=== PATIENT | female | born 1990 | race Caucasian/White ===

== ENCOUNTER 2016-07-24 04:17 | Emergency (ER) | payer SELFPAY ==
[2016-07-24] MEDS ORDERED: LIDOCAINE 1%/EPINEPHRINE INJ 20 ML VIAL INJ ONE (04:50)
--- NOTE | 2016-07-24 05:30 | ER Document Report ---
ED General <MARGARET CHRISTIANSON - Last Filed: 07/24/16 06:38> <CASE CARLTON - Last Filed: 07/24/16 11:52> - General Chief Complaint: Laceration Stated Complaint: ARM INJURY Notes: Patient is a 25 year old female presents for complaint of a self inflicted laceration to left forearm. Patient says that she got already met family member. She had been drinking tonight. She says she became very upset and then start cutting her left forearm. When asked if she is suicidal, she currently says that she is depressed but not completely suicidal. She says she is unsure if she was actually tried to hurt herself or just relieve stress. She says she is very emotional the time and had been drinking. She admits to a previous history of depression and said that she did self cut once before when she's 14. She currently takes no medications except for occasional Suboxone which she was previously prescribed in the past. She does not take this on a daily basis. She denies any other drug abuse. (MARGARET CHRISTIANSON) - Related Data Allergies/Adverse Reactions: No Known Allergies Allergy (Verified 03/11/13 11:39) Past Medical History - Social History Smoking Status: Unknown if Ever Smoked Frequency of alcohol use: Occasional Drug Abuse: None Family History: None - Immunizations Immunizations up to date: Yes Hx Diphtheria, Pertussis, Tetanus Vaccination: Yes <MARGARET CHRISTIANSON - Last Filed: 07/24/16 06:38> Review of Systems <MARGARET CHRISTIANSON - Last Filed: 07/24/16 06:38> <CASE CARLTON - Last Filed: 07/24/16 11:52> - Review of Systems Notes: My Normal Review Basic REVIEW OF SYSTEMS: CONSTITUTIONAL : Denies fever, chills, or sweats. Denies recent illness. EENT: Denies eye, ear, throat, or mouth pain or symptoms. Denies nasal or sinus congestion. RESPIRATORY: Denies cough, cold, or chest congestion. Denies shortness of breath, difficulty breathing, or wheezing. GASTROINTESTINAL: Denies abdominal pain. Denies nausea, vomiting, or diarrhea. Denies constipation. Last BM: GENITOURINARY: Denies difficulty urinating, painful urination, burning, frequency, or blood in urine. MUSCULOSKELETAL: Denies neck or back pain or joint pain or swelling. SKIN: Laceration left forearm NEUROLOGICAL: Denies altered mental status or loss of consciousness. Denies headache. Denies weakness or paralysis or loss of use of either side. Denies problems with gait or speech. Denies sensory or motor loss. PSYCHIATRIC: Depression ALL OTHER SYSTEMS REVIEWED AND NEGATIVE. (MARGARET CHRISTIANSON) Physical Exam <MARGARET CHRISTIANSON - Last Filed: 07/24/16 06:38> <CASE CARLTON - Last Filed: 07/24/16 11:52> - Vital signs Vitals: Temp Pulse Resp BP Pulse Ox 98 F 111 H 18 117/65 95 07/24/16 04:36 07/24/16 04:36 07/24/16 04:36 07/24/16 04:36 07/24/16 04:36 (MARGARET CHRISTIANSON) (CASE CARLTON) - Notes Notes: General Appearance: Well nourished, alert, cooperative, no acute distress, no obvious discomfort. Well-appearing. Vitals: reviewed, See vital signs table. Head: no swelling or tenderness to the head Eyes: PERRL, EOMI, Conjuctiva clear Mouth: No decreasd moisture Throat: No tonsillar inflammation, No airway obstruction, No lymphadenopathy Neck: Supple, no neck tenderness, No thyromegaly Lungs: No wheezing, No rales, No rhonci, No accessory muscle use, good air exchange bilaterally. Heart: Normal rate, Regular rythm, No murmur, no rub Abdomen: Normal BS, soft, No rigidity, No abdominal tenderness, No guarding, no rebound, no abdominal masses, no organomegaly Extremities: strength 5/5 in all extremities, good pulses in all extremities, no swelling or tenderness in the extremities, no edema. Skin: 4 cm laceration to left forearm. Neuro: Speech is clear , responds appropriately to questions. (MARGARET CHRISTIANSON) Course - Laboratory Result Diagrams: 07/24/16 05:45 07/24/16 05:45 <MARGARET CHRISTIANSON - Last Filed: 07/24/16 06:38> - Laboratory Result Diagrams: 07/24/16 05:45 07/24/16 05:45 <CASE CARLTON - Last Filed: 07/24/16 11:52> - Vital Signs Vital signs: Temp Pulse Resp BP Pulse Ox 98.8 F 92 14 100/41 L 95 07/24/16 07:57 07/24/16 07:57 07/24/16 07:57 07/24/16 07:57 07/24/16 07:57 (MARGARET CHRISTIANSON) (CASE CARLTON) - Laboratory Laboratory results interpreted by me: 07/24/16 07/24/16 07/24/16 05:45 05:45 08:58 Hct 35.5 L RDW 15.2 H Urine Blood SMALL H Salicylates < 1.0 L Acetaminophen < 10 L (CASE CARLTON) - EKG Interpretation by Me Additional EKG results interpreted by me: 07/24/16 06:38 EKG is reviewed and interpreted by me. EKG shows sinus tachycardia with rate [address] segment elevation or depression. No ischemic T wave inversions. AL interval, QRS duration, QTC intervals are within normal range. No old EKG available for comparison at this time. 07/24/16 06:39 (MARGARET CHRISTIANSON) Procedures - Laceration/Wound Repair left forearm Wound length (cm): 4 Wound's Depth, Shape: Linear Laceration pre-procedure: Shur-Clens applied Anesthetic type: 1% Lidocaine w/epi Volume Anesthetic (mLs): 2 Wound explored: Clean Irrigated w/ Saline (mLs): 20 Wound Repaired With: Sutures Suture Size/Type: 4:0, Ethilon Number of Sutures: 8 Post-procedure NV exam normal: Yes Complications: No <MARGARET CHRISTIANSON - Last Filed: 07/24/16 06:38> Discharge <MARGARET CHRISTIANSON - Last Filed: 07/24/16 06:38> <CASE CARLTON - Last Filed: 07/24/16 11:52> - Discharge Clinical Impression: PTSD (post-traumatic stress disorder) Anxiety disorder Qualifiers: Anxiety disorder type: unspecified anxiety disorder Qualified Code(s): F41.9 - Anxiety disorder, unspecified Condition: Stable Disposition: HOME, SELF-CARE Instructions: Laceration Care ([facility]), Anxiety ([facility]) Additional Instructions: KEEP WOUND CLEAN AND DRY. FOLLOW UP FOR SUTURE REMOVAL IN 10 DAYS. FOLLOW UP WITH [facility] ON FEB. 9th SCHEDULED. RETURN TO E.R. IF PROBLEMS. Referrals: [facility] [Outside] - 07/31/16 10:00 am
[2016-07-24 05:56] LABS: ABSOLUTE EOSINOPHILS # (AUTO) 0.1 10^3/uL (0.0-0.6); ABSOLUTE MONOCYTES (AUTO) 0.5 10^3/uL (0.1-1.4); ABSOLUTE NEUT (AUTO) 3.2 10^3/uL (1.7-8.2); BASOPHILS % (AUTO) 0.6 % (0-2); EOSINOPHILS % (AUTO) 1.8 % (0-6); HEMATOCRIT 35.5 % (36.0-47.0); HEMOGLOBIN 12.3 g/dL (12.0-15.5); HGB HCT DIFFERENCE 1.4; LYMPHOCYTES % (AUTO) 43.9 % (13-45); MEAN CORPUSCULAR HEMOGLOBIN 31.3 pg (27.0-33.4); MEAN CORPUSCULAR HGB CONC 34.6 g/dL (32.0-36.0); MEAN CORPUSCULAR VOLUME 90 fl (80-97); MONOCYTES % (AUTO) 6.8 % (3-13); RED BLOOD COUNT 3.93 10^6/uL (3.72-5.28); RED CELL DISTRIBUTION WIDTH 15.2 % (11.5-14.0); SEGMENTED NEUTROPHILS % (AUTO) 46.9 % (42-78); WHITE BLOOD COUNT 6.9 10^3/uL (4.0-10.5)
[2016-07-24] MEDS ORDERED: NICOTINE 14 MG/24 HR PATCH.TD24 TD ONE (06:08)
[2016-07-24 06:17] LABS: ALANINE AMINOTRANSFERASE 24 U/L (9-52); ALBUMIN 4.6 g/dL (3.5-5.0); ALCOHOL 90 mg/dL (NONE DETECTED); ALKALINE PHOSPHATASE 70 U/L (38-126); ANION GAP 14 (5-19); ASPARTATE AMINO TRANSFERASE 22 U/L (14-36); BILIRUBIN,TOTAL 0.3 mg/dL (0.2-1.3); BLOOD UREA NITROGEN 11 mg/dL (7-20); CALCIUM 9.4 mg/dL (8.4-10.2); CARBON DIOXIDE 24 mmol/L (22-30); CHLORIDE 106 mmol/L (98-107); CREATININE RESULT 0.64 mg/dL (0.52-1.25); GLUCOSE 90 mg/dL (75-110); POTASSIUM 3.8 mmol/L (3.6-5.0); SODIUM 143.6 mmol/L (137-145); TOTAL PROTEIN 7.3 g/dL (6.3-8.2)
[2016-07-24 09:16] LABS: APPEARANCE,URINE SLIGHTLY-CLOUDY; BILIRUBIN,URINE NEGATIVE (NEGATIVE); GLUCOSE, URINE NEGATIVE (NEGATIVE); KETONES,URINE NEGATIVE (NEGATIVE); LEUKOCYTE ESTERASE,URINE NEGATIVE (NEGATIVE); NITRITE,URINE NEGATIVE (NEGATIVE); PROTEIN,URINE NEGATIVE (NEGATIVE); URINE SPECIFIC GRAVITY 1.013; UROBILINOGEN,URINE NEGATIVE mg/dL (<2.0)
--- NOTE | 2016-07-24 09:21 | ER Document Report ---
Doctor's Note Notes: 07/24/16 09:20 Medical rounds: Chart reviewed and patient interviewed briefly. Patient denies any somatic complaints. She is alert, oriented, and coherent. Vital signs are normal. Laboratory values satisfactory. She is medically stable pending psychosocial evaluation and disposition.
[2016-07-24 09:30] LABS: URINE BARBITURATES SCREEN NEGATIVE; URINE METHADONE SCREEN NEGATIVE; URINE OPIATES LOW UNCONFIRMED POSITIVE; URINE PHENCYCLIDINE SCREEN NEGATIVE
--- NOTE | 2016-07-24 09:32 | PSYCHOLOGICAL NOTE ---
Psych Note - Psych Note Psych Note: Patient presented to [facility] ED with complaint of a self inflicted laceration to left forearm. Patient says that she got already met family member. She had been drinking tonight. She says she became very upset and then start cutting her left forearm. Patient states she is not suicidal and was not trying to kill herself. She continues to state that it has been almost 10 years since the last time she has cut herself. Clinician notes patient's self-inflicted wound is on left forearm which is approximately 4 cm long; stitches are noted. Scarring in the general location is also noted in what appears to be similar old wounds reinforcing patient's statement. Patient disclosed that she had been drinking more than normal last night. She states that it started out as fun between her and her brother however it quickly changed. She continued disclosed that even last night when she was sitting in the emergency room she looked down she stated I don't know what I was thinking; "what the f was I thinking?" Patient disclosed her mother started drinking before she her brother and when she drinks she says mean things. She continue disclosed that he was approximately 1-1/2 hours of her mother berating her and telling she does love her and calling her nasty names that she just lost. She continue disclosed that normally their mother is not in the home so as not a big deal however last night it was. Patient states that previous events led her to outpatient services and agrees that a return to outpatient services would benefit and reinforced learned coping skills. Patient's Brother, Juanito [phone], agrees to be patient's safety resource. He agrees to ensure patient and patient's mother have minimal contact while intoxicated. He continued to disclose that he will actively assist the patient in using coping skills and to remind patient to walk away. Patient is alert and orientated to person place time and circumstance. Patient' s mood is euthymic with congruent affect. Patient denies suicidal homicidal ideation. Patient denies auditory and visual hallucinations; no delusions are noted. Thought process is logical organized and linear. Conversational speech is within normal rate tone and prosody. Eye contact was good. Intellectual abilities appear to be average range. Attention and concentration are good. Insight, judgment, impulse control are fair. 300.00 (F41.9) Unspecified Anxiety Disorder per history provided by patient 309.81 (F43.10) PTSD per history provided by patient Impression/plan: At this time the patient is denying suicidal ideation and intent and does not met criteria for IVC per [place] GS 122. Patient will be receiving outpatient services through [facility] 07/31/16 @ 10am. Patient's brother agrees to be patient's safety resource. Patient agrees that living at home is not a good idea and that her brother,Juanito, will assist her in ensuring that she has minimal contact with her mother during the process of finding a new home. She continued disclosed that she agrees that she will not drink since last night if she was not drinking she could've just left inside of listening to her mother which resulted in this event.
--- NOTE | 2016-07-24 11:34 | EKG REPORT ---
SEVERITY:- OTHERWISE NORMAL ECG - SINUS TACHYCARDIA : Confirmed by: Timothy Davison 24-Jul-2016 11:33:24
[2016-07-24 12:10] VITALS: BP 116/73
== END 2016-07-24 12:10 | disposition home or self-care (01) ==
LOC: ER 04:17
PROC: 0HQEXZZ Repair Left Lower Arm Skin, External Approach (ICD-10-PCS; principal; 2016-07-24)
DX: S51.812A Laceration without foreign body of left forearm, initial encounter (principal); X78.8XXA Intentional self-harm by other sharp object, initial encounter; Y93.89 Activity, other specified; F43.10 Post-traumatic stress disorder, unspecified; F41.9 Anxiety disorder, unspecified; F32.9 Major depressive disorder, single episode, unspecified; R00.0 Tachycardia, unspecified
CPT/HCPCS: 12002; 93005; 99285; 36415; 80307 ×4; 84703; 85025; 80053; 81001; 93010; J3490

== ENCOUNTER 2017-05-14 12:42 | Emergency (ER) | payer SELFPAY ==
[2017-05-14 13:10] LABS: ABSOLUTE BASOPHILS # (AUTO) 0.1 10^3/uL (0.0-0.2); ABSOLUTE EOSINOPHILS # (AUTO) 0.1 10^3/uL (0.0-0.6); ABSOLUTE LYMPHOCYTES (AUTO) 2.9 10^3/uL (0.5-4.7); ABSOLUTE MONOCYTES (AUTO) 1.2 10^3/uL (0.1-1.4); ABSOLUTE NEUT (AUTO) 7.9 10^3/uL (1.7-8.2); BASOPHILS % (AUTO) 0.9 % (0-2); EOSINOPHILS % (AUTO) 1.2 % (0-6); LYMPHOCYTES % (AUTO) 23.5 % (13-45); MEAN CORPUSCULAR HEMOGLOBIN 31.2 pg (27.0-33.4); MEAN CORPUSCULAR HGB CONC 33.4 g/dL (32.0-36.0); MEAN CORPUSCULAR VOLUME 93 fl (80-97); MONOCYTES % (AUTO) 9.8 % (3-13); RED BLOOD COUNT 4.18 10^6/uL (3.72-5.28); RED CELL DISTRIBUTION WIDTH 13.5 % (11.5-14.0); SEGMENTED NEUTROPHILS % (AUTO) 64.6 % (42-78); WHITE BLOOD COUNT 12.3 10^3/uL (4.0-10.5)
[2017-05-14] MEDS ORDERED: HALOPERIDOL LACTATE INJ 5 MG/1 ML VIAL IM ONE ×2 (13:10→15:03)
--- NOTE | 2017-05-14 13:10 | ER Document Report ---
ED Psych Disorder / Suicide - General Mode of Arrival: Medic Information source: Emergency Med Personnel - IVC paperwork Cannot obtain history due to: Uncooperative <MARLENE BENÍTEZ - Last Filed: 05/14/17 13:56> <SHAE ST - Last Filed: 05/14/17 16:21> - General Chief Complaint: Psych Problem Stated Complaint: IVC Time Seen by Provider: 05/14/17 12:47 Notes: Patient is a 26-year-old female that presents to the emergency department today on IVC paperwork. According to IVC paperwork, the patient has been "decreasing in levels of functioning, has been slamming doors in peoples faces, and has not been sleeping or eating". Patient is uncooperative and refuses to talk so history is limited. (MARLENE BENÍTEZ) - Related Data Allergies/Adverse Reactions: No Known Allergies Allergy (Verified 03/11/13 11:39) Past Medical History - General Information source: [facility] Records Cannot obtain history due to: Uncooperative - Social History Smoking Status: Current Every Day Smoker Cigarette use (# per day): Yes Family History: None Surgical Hx: Negative - Immunizations Immunizations up to date: Yes Hx Diphtheria, Pertussis, Tetanus Vaccination: Yes <MARLENE BENÍTEZ - Last Filed: 05/14/17 13:56> Review of Systems - Review of Systems -: Yes ROS unobtainable due to patient's medical condition - refuses to talk <MARLENE BENÍTEZ - Last Filed: 05/14/17 13:56> Physical Exam <MARLENE BENÍTEZ - Last Filed: 05/14/17 13:56> <SHAE ST - Last Filed: 05/14/17 16:21> - Vital signs Vitals: Temp Pulse Resp BP Pulse Ox 98.8 F 124 H 20 140/74 H 95 05/14/17 12:48 05/14/17 12:48 05/14/17 12:48 05/14/17 12:48 05/14/17 12:48 - Notes Notes: Physical Exam: General: Refuses to answer questions. In 4 point restraints, still jerking attempting to get out of them. HEENT: Normocephalic. Atraumatic. PERRLA. Extraocular movements intact. Oropharynx clear. Neck: Supple. Respiratory: No respiratory distress. Abdominal: Normal Inspection. No distension. Extremities: Moves all four extremities. Neurological: unable to assess Psychological: unable to assess Skin: Warm. Dry. Normal color. (MARLENE BENÍTEZ) Course - Laboratory Result Diagrams: 05/14/17 13:00 05/14/17 13:00 <MARLENE BENÍTEZ - Last Filed: 05/14/17 13:56> - Laboratory Result Diagrams: 05/14/17 13:00 05/14/17 13:00 - Transfer of Care Care transferred to following provider: Dr. Downs <HSAE ST - Last Filed: 05/14/17 16:21> - Re-evaluation Re-evalutation: 05/14/17 15:04 The patient does seem to be a little bit drowsy, but remains quite active and uncooperative and fighting against restraints. 05/14/17 15:30 After consultation with psychiatry, the patient will be given a 10 mg dose of Zyprexa IM at this time, and then be started on Zyprexa 5 mg twice daily along with daily Cogentin. (SHAE ST) - Vital Signs Vital signs: Temp Pulse Resp BP Pulse Ox 98.8 F 124 H 20 140/74 H 95 05/14/17 12:48 05/14/17 12:48 05/14/17 12:48 05/14/17 12:48 05/14/17 12:48 - Laboratory Laboratory results interpreted by me: 05/14/17 05/14/17 05/14/17 13:00 13:00 13:00 WBC 12.3 H Sodium 146.5 H Chloride 109 H Carbon Dioxide 14 L Anion Gap 24 H Direct Bilirubin 0.5 H Creatine Kinase 296 H Albumin 5.2 H Salicylates < 1.0 L Acetaminophen < 10 L - Transfer of Care Notes: 05/14/17 16:20 Patient care transferred to Dr. Downs. Patient is pending EKG to be done. Patient recently received an injection of Zyprexa. Patient remains in restraints at this time. When the Zyprexa begins to work she can be reevaluated for the restraint needs. She remains on involuntary commitment hold. (SHAE ST) Discharge <MARLENE BENÍTEZ - Last Filed: 05/14/17 13:56> <SHAE ST - Last Filed: 05/14/17 16:21> - Discharge Clinical Impression: Manic psychosis Condition: Stable Disposition: PSYCH HOSP/UNIT Scribe Attestation: 05/14/17 13:42 I personally performed the services described in the documentation, reviewed and edited the documentation which was dictated to the scribe in my presence, and it accurately records my words and actions. (SHAE ST) Scribe Documentation - Scribe Written by Bernardinoe:: Sampson Otto, 05/14/2017 1400 acting as scribe for :: Dieudonne <MARLENE BENÍTEZ - Last Filed: 05/14/17 13:56>
[2017-05-14] MEDS ORDERED: BENZTROPINE MESYLATE INJ 2 MG/2 ML AMPULE IM ONE (13:11)
[2017-05-14 13:30] LABS: ALANINE AMINOTRANSFERASE 27 U/L (9-52); ALBUMIN 5.2 g/dL (3.5-5.0); ALKALINE PHOSPHATASE 73 U/L (38-126); ASPARTATE AMINO TRANSFERASE 30 U/L (14-36); BILIRUBIN,DIRECT 0.5 mg/dL (0.0-0.4); BILIRUBIN,TOTAL 0.9 mg/dL (0.2-1.3); BLOOD UREA NITROGEN 13 mg/dL (7-20); CALCIUM 9.9 mg/dL (8.4-10.2); CREATININE RESULT 0.89 mg/dL (0.52-1.25); GLUCOSE 95 mg/dL (75-110); TOTAL PROTEIN 7.8 g/dL (6.3-8.2)
[2017-05-14 13:31] LABS: ALCOHOL < 10 mg/dL (NONE DETECTED)
[2017-05-14 13:39] LABS: CARBON DIOXIDE 14 mmol/L (22-30); CHLORIDE 109 mmol/L (98-107); POTASSIUM 4.2 mmol/L (3.6-5.0); SODIUM 146.5 mmol/L (137-145)
[2017-05-14 13:40] LABS: ANION GAP 24 (5-19)
[2017-05-14 13:57] LABS: ADD ON TESTING BLD IN LAB ACKNOWLEDGE
[2017-05-14 14:06] LABS: CREATINE KINASE 296 U/L (30-135)
[2017-05-14] MEDS ORDERED: RISPERIDONE 0.25 MG TABLET PO SCH (15:25)
[2017-05-14] MEDS ORDERED: OLANZAPINE INJ/PF 10 MG SDV IM ONE (15:27)
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
[2017-05-14] MEDS ORDERED: OLANZAPINE 5 MG TABLET PO SCH (22:00)
[2017-05-15] MEDS ORDERED: BENZTROPINE MESYLATE 1 MG TABLET PO SCH (10:00)
--- NOTE | 2017-05-15 10:06 | ER Document Report ---
Doctor's Note Notes: 05/15/17 10:05 This is a 26-year-old female. Brought in under commitment last night. Refuses to cooperate with urinalysis, EKG or other medical interventions. Will not talk to anyone. Would not talk to me this morning. Patient needs intensive therapy. Advised patient that if we are unable to get her urine we may need to do a urine catheterization to evaluate for toxins which could be causing issues. Patient did not respond. Patient is sitting upright and looking at the floor. Vital signs have been reviewed. We will continue to try and negotiate with patient with regards to laboratory studies but will need to get intervention for urinalysis if she does not cooperate.
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
[2017-05-15 10:33] LABS: APPEARANCE,URINE SLIGHTLY-CLOUDY; BILIRUBIN,URINE NEGATIVE (NEGATIVE); GLUCOSE, URINE NEGATIVE (NEGATIVE); KETONES,URINE 20 mg/dL (NEGATIVE); LEUKOCYTE ESTERASE,URINE TRACE (NEGATIVE); NITRITE,URINE NEGATIVE (NEGATIVE); PROTEIN,URINE 100 mg/dL (NEGATIVE); URINE SPECIFIC GRAVITY 1.033
[2017-05-15 10:43] LABS: URINE BARBITURATES SCREEN NEGATIVE; URINE METHADONE SCREEN NEGATIVE; URINE OPIATES LOW NEGATIVE; URINE PHENCYCLIDINE SCREEN NEGATIVE
--- NOTE | 2017-05-15 14:44 | EKG REPORT ---
SEVERITY:- DEFECTIVE ECG - SINUS RHYTHM BASELINE ARTIFACT.REPEAT EKG. : Confirmed by: Syeda Coats MD 15-May-2017 14:43:41
[2017-05-15] MEDS ORDERED: OLANZAPINE 5 MG TABLET PO SCH (22:00)
--- NOTE | 2017-05-16 10:13 | ER Document Report ---
Doctor's Note Notes: 05/16/17 10:10 Rounds: Chart reviewed and attempted to interview patient, but she is not responding. She is awake and has her eyes open but will not answer any questions. This is the same behavior that she has exhibited since her arrival here 2 days ago. She has a history of bipolar disorder and PTSD. Lab studies are all essentially normal except for a white count of 12,300. Vital signs are all normal. Patient has refused to take medications, and unfortunately, nurse taking care of her last night thought she could refuse her medications so the patient has now been here into her second day without receiving medications except for her initial single dose of Haldol when she arrived. Patient appears to be medically stable for transfer or discharge. Cielo Luis MD
[2017-05-16] MEDS: BENZTROPINE MESYLATE INJ 2 MG/2 ML AMPULE IM SCH (10:20)
[2017-05-16] MEDS: OLANZAPINE INJ/PF 10 MG SDV IM SCH ×2 (10:20→21:55)
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
[2017-05-17] MEDS: BENZTROPINE MESYLATE INJ 2 MG/2 ML AMPULE IM SCH (08:18)
[2017-05-17] MEDS: OLANZAPINE INJ/PF 10 MG SDV IM SCH ×2 (09:42→21:09)
[2017-05-17] MEDS ORDERED: NORMAL SALINE 1000 ML 1,000 ML IV PRN (10:58)
--- NOTE | 2017-05-17 10:58 | ER Document Report ---
Doctor's Note Notes: 05/17/17 10:57 Patient still not verbal. Initial laboratory studies that show some slight dehydration notified by nursing staff the patient is not drinking therefore we will recheck chemistry panel will establish an IV and give the patient fluids for hydration still currently pending psychiatric evaluation
--- NOTE | 2017-05-17 14:05 | PSYCHOLOGICAL NOTE ---
Psych Note - Psych Note Psych Note: Patient is a 26 year old female who has been in the ED under IVC since 2016 for manic episode. She has not been engaged with evaluations since arriving to the ED. She has not been eating or drinking much. Today this has not changed. Patient was sleeping but easily aroused. She shook her head no when this clinician asked her to talk and have a discussion. She did open her eyes slightly and blink. She pulled her covers up a bit more. At 1222 this clinician noticed mother at bedside. Patient was knelt down on her knees in the corner of the room below the TV. She was facing mother and crying. Diagnosis: 296.80 (F31.9) Unspecified Bipolar Related Disorder 309.81 (F43.10) Post Traumatic Stress Disorder by History Impression/Plan: Recommendation to maintain IVC given patient lack of engagement , depressed mood with tearful affect, and her history with noncompliance with treatment. Will continue to try to engage patient. Consulted with Dr. Watson regarding the management and care of patient. ED Physician in agreement with recommendations.
[2017-05-18] MEDS: BENZTROPINE MESYLATE INJ 2 MG/2 ML AMPULE IM SCH (09:00)
--- NOTE | 2017-05-18 10:04 | ER Document Report ---
Doctor's Note Notes: 05/18/17 10:02 Medical rounds: Chart reviewed and patient interviewed briefly. Vital signs are satisfactory. Laboratory values are satisfactory. Patient is in no apparent distress. She opens her eyes when spoken to, but will not verbalize. She continues to be medically stable, pending reevaluation and placement by psychosocial team.
[2017-05-18] MEDS: OLANZAPINE INJ/PF 10 MG SDV IM SCH ×2 (11:30→22:05)
--- NOTE | 2017-05-18 13:01 | PSYCHOLOGICAL NOTE ---
Psych Note - Psych Note Psych Note: Patient is a 26 year old female who has been in the ED under IVC since 2016 for manic episode. She continues to not been engaged with evaluations since arriving to the ED. Overnight nurse identified patient ate last evening while mother was visiting and even came to meter maintenance person the doorway (previously stayed room trying to avoid interaction). The morning patient health safety coordinator stated she asked patient if she wanted to eat but patient refused and she asked if patient wanted a shower and patient started crying. This clinician observed patient sleeping or resting in bed all morning into the afternoon. Patient health safety coordinator confirmed this and mentioned she has repositioned herself a couple times. At 1226 attempted to engage patient. She was sitting upright in the chair in her room with a blanket wrapped around her. She did speak a little bit. She asked what this clinician wanted to talk with her about. She asked what would have to take place for a plan of care for discharge after this clinician stated if patient talks about why she is in the ED and how she is feeling she may not need to stay or go to a behavioral health facility. She stated "I don't' know what to do but did not elaborate." At one point she smiled and laughed at a car commercial that had a Marty theme. She commented "some commercials are silly." After this clinician walked out patient went to the corner of the room out of sight and ate a small piece of food and drank some juice. Attending nurse identified patient would not eat breakfast or lunch and patient had asked her why her medication dose keeps changing. Attending nurse also stated patient has been randomly tearful. She noted patient's father, Terrence ([phone]), called and when nurse asked patient if she wanted to speak with him she became tearful but eventually said she wanted him here. He had to work at 1300 so will attempt to call him tomorrow for further collateral. Diagnosis: 296.80 (F31.9) Unspecified Bipolar Related Disorder 309.81 (F43.10) Post Traumatic Stress Disorder by History Impression/Plan: Recommendation to maintain IVC given patient lack of engagement , depressed mood with tearful affect, and her history with noncompliance with treatment. Will continue to try to engage patient. Consulted with Dr. Watson regarding the management and care of patient. ED Physician in agreement with recommendations.
[2017-05-18] MEDS ORDERED: FLUOXETINE HCL 20 MG CAPSULE PO SCH (13:30)
[2017-05-18] MEDS ORDERED: FLUOXETINE HCL 20 MG CAPSULE PO ONE (15:30)
--- NOTE | 2017-05-19 07:47 | ER Document Report ---
Doctor's Note Notes: 05/19/17 07:45 Pt accepted to [facility] under the care of Dr. Le for Inpatient Psychiatric care. She will be transported by Law Enforcement. Pt reassessed and stable for transfer.
[2017-05-19] MEDS: BENZTROPINE MESYLATE INJ 2 MG/2 ML AMPULE IM SCH (08:10)
[2017-05-19 08:54] VITALS: BP 110/71
== END 2017-05-19 08:40 ==
LOC: ER 12:42
DX: F30.2 Manic episode, severe with psychotic symptoms (principal); F17.210 Nicotine dependence, cigarettes, uncomplicated
CPT/HCPCS: 93005; 99285; 96372; 36415; 87086; 80307 ×4; 82550; 84703; 85025; 80053; 81001; 93010; J0515 ×5; J1630

== ENCOUNTER 2018-01-14 19:17 | Emergency (ER) | payer SELFPAY ==
[2018-01-14 19:58] LABS: ABSOLUTE EOSINOPHILS # (AUTO) 0.1 10^3/uL (0.0-0.6); ABSOLUTE LYMPHOCYTES (AUTO) 2.3 10^3/uL (0.5-4.7); ABSOLUTE MONOCYTES (AUTO) 0.5 10^3/uL (0.1-1.4); ABSOLUTE NEUT (AUTO) 5.3 10^3/uL (1.7-8.2); BASOPHILS % (AUTO) 0.6 % (0-2); EOSINOPHILS % (AUTO) 1.5 % (0-6); HEMATOCRIT 38.2 % (36.0-47.0); HEMOGLOBIN 13.1 g/dL (12.0-15.5); LYMPHOCYTES % (AUTO) 27.3 % (13-45); MEAN CORPUSCULAR HEMOGLOBIN 31.6 pg (27.0-33.4); MEAN CORPUSCULAR HGB CONC 34.2 g/dL (32.0-36.0); MEAN CORPUSCULAR VOLUME 92 fl (80-97); MONOCYTES % (AUTO) 6.4 % (3-13); PLATELET COUNT 258 10^3/uL (150-450); RED BLOOD COUNT 4.13 10^6/uL (3.72-5.28); RED CELL DISTRIBUTION WIDTH 13.7 % (11.5-14.0); SEGMENTED NEUTROPHILS % (AUTO) 64.2 % (42-78); TOTAL CELLS COUNTED % (AUTO) 100 %; WHITE BLOOD COUNT 8.3 10^3/uL (4.0-10.5)
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
[2018-01-14 20:17] LABS: ALANINE AMINOTRANSFERASE 26 U/L (9-52); ALBUMIN 4.6 g/dL (3.5-5.0); ALKALINE PHOSPHATASE 66 U/L (38-126); ANION GAP 14 (5-19); ASPARTATE AMINO TRANSFERASE 20 U/L (14-36); BILIRUBIN,DIRECT 0.4 mg/dL (0.0-0.4); BILIRUBIN,TOTAL 0.9 mg/dL (0.2-1.3); BLOOD UREA NITROGEN 17 mg/dL (7-20); CALCIUM 9.5 mg/dL (8.4-10.2); CARBON DIOXIDE 22 mmol/L (22-30); CHLORIDE 104 mmol/L (98-107); GLUCOSE 140 mg/dL (75-110); POTASSIUM 3.4 mmol/L (3.6-5.0); SODIUM 140.3 mmol/L (137-145); TOTAL PROTEIN 7.2 g/dL (6.3-8.2)
[2018-01-14 20:18] LABS: ACETAMINOPHEN < 10 ug/mL (10-30); ALCOHOL < 10 mg/dL (NONE DETECTED); SALICYLATE < 1.0 mg/dL (2.0-20.0)
--- NOTE | 2018-01-15 00:03 | EKG REPORT ---
SEVERITY:- ABNORMAL ECG - SINUS RHYTHM NONSPECIFIC T ABNORMALITIES, INFERIOR LEADS : Confirmed by: Syeda Coats MD 15-Jan-2018 00:03:07
--- NOTE | 2018-01-15 09:49 | ER Document Report ---
Doctor's Note Notes: 01/15/18 09:48 Medical rounds: Chart reviewed and patient interviewed briefly. Vital signs are normal. Laboratory values satisfactory, urine toxicology screen pending. Patient is alert, eyes open, moves all 4 extremities spontaneously but will not make eye contact or respond to questions verbally. She appears to be medically stable, pending evaluation by psych.
[2018-01-15] MEDS: CHLORPROMAZINE HCL INJ 25 MG/1 ML AMPULE IM SCH ×2 (19:03→19:43)
[2018-01-15] MEDS: BENZTROPINE MESYLATE INJ 2 MG/2 ML AMPULE IM SCH ×2 (19:04→19:44)
--- NOTE | 2018-01-16 10:12 | ER Document Report ---
Doctor's Note Notes: 01/16/18 10:11 Rounds: Chart reviewed and attempted to interview patient, but she is not verbal at this time. Patient's problem list includes PTSD, depression and suicidal ideation, anxiety, and bizarre behavior. Lab studies here show a potassium of 3.4 and the patient was given 40 mEq of potassium p.o. She reportedly is out of medications. Vital signs are all normal. All of the lab studies are normal. Patient appears to be medically stable for transfer or discharge. Cielo Luis MD
--- NOTE | 2018-01-16 10:18 | PSYCHOLOGICAL NOTE ---
Psych Note - Psych Note Psych Note: Attempted to meet with Patient after her arrival. She was noted to stand outside of her room holding a blanket and would not engage with this clinician or any other staff. She did not communicate with anyone. She did not ask for anything or follow directions. She eventually went into her room and stood at the foot of her bed holding the blanket, still not engaging. Continued efforts were made to engage without success.
--- NOTE | 2018-01-16 11:51 | PSYCHOLOGICAL NOTE ---
Psych Note - Psych Note Psych Note: Attempted to meet with Patient again. She was noted to be laying in bed with her mother at bedside. When her mother stood to leave the room to speak with me , the Patient climbed out of bed and stood in the doorway. 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 Mother reported the Patient was hospitalized in May 2017 for 2 months for a similar episode and until 1 month ago was doing fine. She reported around the end of November she started to become paranoid, slightly confused and has continued to declined to this state. She reported her daughter has not eaten anything in one week, slept in one week , or had any fluid intake in one week. She reported she is concerned for her daughter's Ammonia level because her sister read a medical book and it referenced Ammonia levels were related to protein intake or lack thereof, etc. It was explained to Patient's mother that Patient's current presentation did not appear consistent with high ammonia levels. However, mother was persistent and it was explained the ammonia level would be checked. Patient's Ammonia was found to be within normal limits. Mother was also advised the Patient was displaying some intentional behaviors which also needed to be addressed. Mother reported she thought the Patient had taken Prolixin while inpatient and it seemed to help her improve but she did not follow up outpatient for ongoing care and medication management. While talking with Patient's mother, the Patient continued to come to the door and direct statement to her mother to "quit talking", "your not a fucking doctor ", "stop talking about me", etc. Otherwise, the Patient would not engage in conversation. The Patient continued to took her medications refuse to eat, drink, or use the bathroom since admission to the ED though she asked for a maxipad, and when advised a urine sample was needed, Patient refused and walked back into her room. Patient was alert and oriented to person and place, but not time and circumstance. Mood was uncooperative but labile, and affect was often incongruent with mood. For example, when patient was crying there were no tears or when standing in doorway, she was looking out the corner of her eyes paying attention to the people talking.. Given her lack of cooperation she would not deny or verify suicidal/ homicidal intent or psychosis, but it was clear she appeared to be responding to internal stimuli. Conversational speech was not existent and thought processes could not be evaluated. Attention and concentration was likely impaired, as it was likely insight, judgment, and impulse control was as well. Medication Recommendation from psychiatric prescriber included: 1. Thorazine 50 mg three times per day 2. Cogentin 1 mg daily Diagnoses: 1. Unspecified Psychotic Disorder Impression / Plan: Patient recommended to remain under IVC. She is noncommunicative and appears to be responding to internal stimuli. She does appear to direct statements to certain actions occurring outside of direct interaction with her, but about her, and when directly engaged, she will not respond. She continues to refuse to eat, drink, or use the bathroom. She does take medication without difficulty, however, when directed to do something not desired, she has a tendency to become very agitated, and has a history of aggression-which is cause for current admission and admission in May 2017. Lab results were within normal limits, indicating a lack of infectious, hepatic , or nephrotic pathogenesis etiology to the current presentation. At this point , she meets criteria for inpatient psychiatric hospitalization. ED Physician in agreement with recommendation and disposition.
[2018-01-16] MEDS: POTASSIUM CHLORIDE 10 MEQ CAPSULE.ER PO ONE ×2 (11:58→12:53)
[2018-01-16] MEDS: CHLORPROMAZINE HCL INJ 25 MG/1 ML AMPULE IM SCH ×2 (12:04→16:30)
[2018-01-16] MEDS: BENZTROPINE MESYLATE INJ 2 MG/2 ML AMPULE IM SCH ×2 (12:05→18:30)
[2018-01-17] MEDS: BENZTROPINE MESYLATE INJ 2 MG/2 ML AMPULE IM SCH ×2 (09:50→18:25)
[2018-01-17] MEDS: CHLORPROMAZINE HCL INJ 25 MG/1 ML AMPULE IM SCH ×3 (09:52→18:25)
--- NOTE | 2018-01-17 10:33 | PSYCHOLOGICAL NOTE ---
Psych Note - Psych Note Psych Note: Psych Note: This Clinician noticed patient standing in the door way of her assigned room. Clinician greeted patient and patient nodded her head but did not say anything. Clinician returned to the room to check on patient again and the patient gericare aide teacher stated that the patient was currently getting a shower and was crying because she did not want to take a shower. Diagnosis: Unspecified Psychotic Disorder Impression/Plan: Patient continues to be unable to communicate. Inpatient program being sought at the current time.
[2018-01-17 10:36] LABS: APPEARANCE,URINE TURBID; BILIRUBIN,URINE SMALL (NEGATIVE); COLOR,URINE AMBER; GLUCOSE, URINE NEGATIVE (NEGATIVE); KETONES,URINE TRACE mg/dL (NEGATIVE); LEUKOCYTE ESTERASE,URINE NEGATIVE (NEGATIVE); NITRITE,URINE NEGATIVE (NEGATIVE); PROTEIN,URINE 100 mg/dL (NEGATIVE); URINE SPECIFIC GRAVITY 1.031
[2018-01-17 10:52] LABS: URINE AMPHETAMINES SCREEN NEGATIVE; URINE BARBITURATES SCREEN NEGATIVE; URINE BENZODIAZEPINES SCREEN UNCONFIRMED POSITIVE; URINE COCAINE SCREEN NEGATIVE; URINE MARIJUANA (THC) SCREEN NEGATIVE; URINE METHADONE SCREEN NEGATIVE; URINE PHENCYCLIDINE SCREEN NEGATIVE
--- NOTE | 2018-01-18 09:16 | ER Document Report ---
Doctor's Note Notes: 01/18/18 09:15 Rounds: Chart reviewed and attempted to interview patient. Patient is interactive with me this morning. Patient states she is feeling better denies suicidal homicidal ideation at this time. Patient she would like to be discharged home. Patient requesting a Band-Aid for a scratch on her right knee. No obvious signs of new trauma. Patient's problem list includes PTSD, depression and suicidal ideation, anxiety , and bizarre behavior. Lab studies here show a potassium of 3.4 and the patient was given 40 mEq of potassium p.o. She reportedly is out of medications. Vital signs are all normal. All of the lab studies are normal. Patient appears to be medically stable for transfer or discharge.
[2018-01-18] MEDS ORDERED: FLUPHENAZINE DECANOATE INJ 125 MG/5 ML VIAL IM ONE (16:55)
[2018-01-18] MEDS: BENZTROPINE MESYLATE INJ 2 MG/2 ML AMPULE IM SCH (17:15)
[2018-01-18] MEDS: OLANZAPINE INJ/PF 10 MG SDV IM SCH (17:17)
[2018-01-19] MEDS: BENZTROPINE MESYLATE INJ 2 MG/2 ML AMPULE IM SCH ×2 (09:11→18:20)
[2018-01-19] MEDS: OLANZAPINE INJ/PF 10 MG SDV IM SCH ×2 (09:15→18:21)
--- NOTE | 2018-01-19 10:22 | ER Document Report ---
Doctor's Note Notes: 01/19/18 10:21 As the rounding physician for our psychiatric patients, I have reviewed the chart, vitals, lab work. Patient has been examined and noted to be having flat affect, she initially is not responding to any questioning she did acknowledge me walking in the room, appeared quite sad and then intermittently will just smile, I asked if she be able to speak with me she did not say anything, I on my way out whispered that she wanted to talk when I entered back into the room she again did not speak with me. I am awaiting mental health in put.
[2018-01-20] MEDS: BENZTROPINE MESYLATE INJ 2 MG/2 ML AMPULE IM SCH ×2 (09:39→17:44)
[2018-01-20] MEDS: OLANZAPINE INJ/PF 10 MG SDV IM SCH ×2 (09:39→17:44)
--- NOTE | 2018-01-20 10:15 | ER Document Report ---
Doctor's Note Notes: 01/20/18 10:13 Medical rounds: Chart reviewed and patient interviewed briefly. Vital signs remain normal. Laboratory values are satisfactory. Patient is lying in bed, eyes open and apparently alert but will not make eye contact and will not respond verbally to questions. She appears to be medically stable, pending disposition.
--- NOTE | 2018-01-20 14:15 | PSYCHOLOGICAL NOTE ---
Psych Note - Psych Note Psych Note: Reason for Consult: IVC The patient is a 27-year-old female, past medical history PTSD, anxiety disorder , severe depression, presents from mobile crisis unit with increasing bizarre behavior. Clinician conducted check-in with patient Patient is unable or unwilling to engage with clinician. Patient is observed standing up in her room with the light off. Patient reportedly has eaten some today. Medication Recommendation from [facility]'s contracted psychiatric prescriber, Dr. Ermelinda MD included: 1. please discontinue Thorazine 50 mg three times per day 2. Please add Prolixin decanoate 12.5 mg once 3. Please add Zyprexa 10 mg twice daily 4. please continue Cogentin 1 mg daily Diagnoses: 1. Unspecified Psychotic Disorder Impression / Plan: Patient recommended to remain under IVC. She is noncommunicative and appears to be responding to internal stimuli. Dr. Watson was consulted on the care and management of this patient, attending physician in agreement with recommendation and disposition.
--- NOTE | 2018-01-20 14:23 | PSYCHOLOGICAL NOTE ---
Psych Note - Psych Note Psych Note: Reason for Consult: IVC The patient is a 27-year-old female, past medical history PTSD, anxiety disorder , severe depression, presents from mobile crisis unit with increasing bizarre behavior. Clinician conducted check-in with patient Patient is unable or unwilling to engage with clinician. Patient reportedly briefly spoke to attending physician. However, after one sentence she refused to continue to engage. Medication Recommendation from [facility]'s contracted psychiatric prescriber, Dr. Ermelinda MD included: 1. please discontinue Thorazine 50 mg three times per day 2. Please add Zyprexa 10 mg twice daily 3. please continue Cogentin 1 mg daily Diagnoses: 1. Unspecified Psychotic Disorder Impression / Plan: Patient recommended to remain under IVC. She is noncommunicative and appears to be responding to internal stimuli. Dr. Watson was consulted on the care and management of this patient, attending physician in agreement with recommendation and disposition.
--- NOTE | 2018-01-20 14:54 | PSYCHOLOGICAL NOTE ---
Psych Note - Psych Note Psych Note: Reason for Consult: IVC The patient is a 27-year-old female, past medical history PTSD, anxiety disorder , severe depression, presents from mobile crisis unit with increasing bizarre behavior. Clinician conducted check-in with patient Patient briefly spoke with clinician today. Patient is noted to move her head to answer questions and then asked clinician for soda. Conversational speech is very soft and difficult to hear. Thought processing is delayed with significant time lapse between a question and the patient's response. Patient is noted to become easily overwhelmed when trying to communicate and hides her head under her arm. Patient has had slight improvement with eating on her own. Medication Recommendation from [facility]'s contracted psychiatric prescriber, Dr. Ermelinda MD included: 1. please discontinue Thorazine 50 mg three times per day 2. Please add Zyprexa 10 mg twice daily 3. please continue Cogentin 1 mg daily Diagnoses: 1. Unspecified Psychotic Disorder Impression / Plan: Patient recommended to remain under IVC. Patient has engaged minimally but still is very withdrawn. Patient will be re-evaluated. Dr. Watson was consulted on the care and management of this patient, attending physician is in agreement with recommendation and disposition.
[2018-01-21] MEDS: OLANZAPINE INJ/PF 10 MG SDV IM SCH (10:14)
[2018-01-21] MEDS: BENZTROPINE MESYLATE INJ 2 MG/2 ML AMPULE IM SCH (10:14)
--- NOTE | 2018-01-21 11:13 | ER Document Report ---
Doctor's Note Notes: 01/21/18 11:11 Rounds: Chart reviewed and patient interviewed. Patient is still hesitant to talk and conversation is very limited. Does not seem to be interested in talking much. She is being evaluated for unspecified psychosis with a history of depression, anxiety, PTSD, and altered mental status. Vital signs were all essentially normal. Lab studies have been normal as well except for being positive for benzos. Patient appears to be medically stable for transfer or discharge. Cielo Luis MD
[2018-01-21] MEDS: OLANZAPINE 5 MG TABLET PO SCH (17:28)
[2018-01-21 20:09] VITALS: BP 96/57
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
[2018-01-22] MEDS: OLANZAPINE 5 MG TABLET PO SCH (09:25)
[2018-01-22] MEDS ORDERED: BENZTROPINE MESYLATE 1 MG TABLET PO SCH (10:00)
--- NOTE | 2018-01-22 12:32 | PSYCHOLOGICAL NOTE ---
Psych Note - Psych Note Psych Note: Reason for Consult: IVC The patient is a 27-year-old female, past medical history PTSD, anxiety disorder , severe depression, presents from mobile crisis unit with increasing bizarre behavior. Check in with patient Patient has been observed eating and voluntarily asked to shower (patient initial presentation concerns were not eating or taking care of hygiene). Patient has also communicated with [facility] ED staff for needs and wants. Patient has no complaints. Medication Recommendation from [facility]'s contracted psychiatric prescriber, Dr. Ermelinda MD included: 1. please discontinue Thorazine 50 mg three times per day 2. Please add Zyprexa 10 mg twice daily 3. please continue Cogentin 1 mg daily Diagnoses: 298.9 (F29) unspecified Psychotic Disorder 309.81 (F43.10) posttraumatic stress disorder per history 311 (F32.9) unspecified depressive disorder per history 300.00 (F41.9) unspecified anxiety disorder per history Polysubstance abuse history Impression / Plan: Patient recommended to remain under IVC. Patient has had significant improvement with eating on her own, taking care of personal hygiene , starting to engage in her environment (i.e. watch TV), and is communicating and has had no behaouvral outbursts during her [facility] ED visit. Medication recommendations were changed to oral administration; Patient has been taking them with minimal difficulties. Patient is continuing to demonstrate some behavioral aspects, these would be addressed most effectively though outpatient mental health services. Patient is at her reported baseline for the last year per mother. Patient has been medicated and stabilized. Dr. Watson was consulted on the care and management of this patient, attending physician is in agreement with recommendation and disposition.
--- NOTE | 2018-01-22 16:41 | ER Document Report ---
Doctor's Note Notes: 01/22/18 16:39 Rounds: Chart reviewed. Attempted to interview patient again, but she is not very talkative. Only answers questions in 1 or 2 word responses. Patient's labs that have been back for couple days were all essentially normal except for her drug screen being positive for benzos. Vital signs have been essentially normal, although her blood pressure this morning was recorded at 96/57. Patient is by no means in any clinical shock. Patient appears to be medically stable for transfer or discharge. Cielo Luis MD
== END 2018-01-22 16:22 | disposition home or self-care (01) ==
LOC: ER 19:17
DX: F29 Unspecified psychosis not due to a substance or known physiological condition (principal); F41.9 Anxiety disorder, unspecified; F32.9 Major depressive disorder, single episode, unspecified; R45.1 Restlessness and agitation; Z91.14 Patient's other noncompliance with medication regimen
CPT/HCPCS: 93005; 99285; 96372; 36415; 80307 ×4; 82140; 84703; 85025; 80053; 81001; 93010; J0515 ×4; J2680; J3230 ×3

== ENCOUNTER 2018-12-12 17:22 | Emergency (ER) | payer SELFPAY ==
[2018-12-12 17:33] VITALS: BP 137/81
[2018-12-12] MEDS ORDERED: PENICILLIN V POTASSIUM 500 MG TABLET PO ONE (18:05)
[2018-12-12] MEDS ORDERED: LIDOCAINE 2% VISCOUS SOLN 20 ML UDCUP PO ONE (18:07)
--- NOTE | 2018-12-12 18:12 | ER Document Report ---
HPI - HPI Patient complains to provider of: tooth infection Time Seen by Provider: 12/12/18 17:57 Pain Level: 1 Context: 28-year-old female presents with chief complaint of dental infection of the #2 3 and 4 teeth. She said she has ongoing dental issues and has had abscesses in the past. She was complaining of swelling of her right cheek but it is gone down significantly. She denies fevers, chills, nausea, vomiting, dysphagia, she is able to control her secretions, denies airway distress, denies acute shortness of breath or chest pain. She does not have dental insurance. - REPRODUCTIVE Reproductive: DENIES: : Past Medical History - Social History Smoking Status: Current Every Day Smoker Family History: None Renal/ Medical History: Denies: Hx Peritoneal Dialysis - Immunizations Immunizations up to date: Yes Hx Diphtheria, Pertussis, Tetanus Vaccination: Yes Vertical Provider Document - CONSTITUTIONAL Notes: PHYSICAL EXAMINATION: Reviewed vital signs and charting by RN GENERAL: Alert, interacts well. No acute distress. HEAD: Normocephalic, atraumatic. EYES: Pupils equal and round. Extraocular movements intact. Poor dentition, the #1 tooth is broken and rotten, dental caries at the gingival border on the buccal side of the numbers 1-3 and 4 teeth, no purulent discharge seen. ENT: Oral mucosa moist, tongue midline. NECK: Full range of motion. Trachea midline. EXTREMITIES: Moves all 4 extremities spontaneously. No edema, No cyanosis. PSYCH: Normal affect, normal mood. SKIN: Warm, dry, normal turgor. No rashes or lesions noted. - INFECTION CONTROL TRAVEL OUTSIDE OF THE [place] IN LAST 30 DAYS: No Course - Re-evaluation Re-evalutation: 12/12/18 18:09 Presentation is most consistent with likely an infected tooth. Airway is patent. Vitals within normal limits. Patient is able swallow without any difficulty. There is no significant facial swelling. No evidence of Fer angina, apical abscess, or airway obstruction. Patient will be started on antibiotics. I've instructed to follow-up with dentistry as earliest ability for definitive management. At this time will discharge with return precautions and follow-up recommendations. Verbal discharge instructions given a the bedside and opportunity for questions given. Medication warnings reviewed. Patient is in agreement with this plan and has verbalized understanding of return precautions and the need for primary care follow-up in the next 24-72 ho urs. - Vital Signs Vital signs: Temp Pulse Resp BP Pulse Ox 98.8 F 75 16 137/81 H 98 12/12/18 17:31 12/12/18 17:31 12/12/18 17:31 12/12/18 17:31 12/12/18 17:31 Discharge - Discharge Clinical Impression: Dental infection Condition: Good Disposition: HOME, SELF-CARE Additional Instructions: You have been seen for dental infection. You have been given penicillin which you should take 4 times a day for 7 days. It is very important that you follow- up with a dentist for definitive care. Please return if you develop fever greater than 101, swelling in your face, vomiting, difficulty breathing or swallowing, or any other symptoms that are concerning to you. For pain you should take ibuprofen 600 mg every 6 hours as needed. Prescriptions: Ibuprofen [Motrin 600 mg Tablet] 600 mg PO Q6H PRN #28 tablet PRN Reason: Penicillin V Potassium [Penicillin Vk 500 mg Tablet] 500 mg PO Q6H #28 tablet
== END 2018-12-12 18:28 | disposition home or self-care (01) ==
LOC: ER 17:22
DX: K04.7 Periapical abscess without sinus (principal); K02.9 Dental caries, unspecified; R22.0 Localized swelling, mass and lump, head; F17.200 Nicotine dependence, unspecified, uncomplicated
CPT/HCPCS: 99282; J3490